=== PATIENT | female | born 1990 | race Caucasian/White ===

== ENCOUNTER 2017-03-24 20:55 | Inpatient (IN) | payer BC ==
[2017-03-24] MEDS ORDERED: LIDOCAINE HCL 50 ML VIAL ONE (21:36)
[2017-03-24] MEDS ORDERED: OXYTOCIN 10 UNITS/ML SYRG ONE (21:40)
[2017-03-24] MEDS ORDERED: OXYTOCIN 10 UNITS/ML SYRG IM ONE (21:54)
[2017-03-24] MEDS ORDERED: BENZOCAINE/MENTHOL 81 SPRAY CAN TP PRN (22:23)
[2017-03-24] MEDS ORDERED: GLYCERIN/WITCH HAZEL LEAF 40 APPL BOX TP PRN (22:23)
[2017-03-24] MEDS ORDERED: BISACODYL 10 MG SUPP.RECT RC PRN (22:23)
[2017-03-24] MEDS ORDERED: oxyCODONE HCL/ACETAMINOPHEN 1 TAB TABLET PO PRN (22:23)
[2017-03-24] MEDS ORDERED: IBUPROFEN 800 MG TABLET PO PRN (22:23)
[2017-03-24] MEDS ORDERED: SENNOSIDES 8.6 MG TABLET PO PRN (22:23)
[2017-03-24] MEDS ORDERED: HYDROCORTISONE 30 APPL TUBE TP PRN (22:23)
--- NOTE | 2017-03-24 22:27 | OR ---
Operative Report - Dictated Report Narrative: Spontaneous Vaginal Delivery Viable male with APGARS of 8 at 1 minute and at 5 minutes. He delivered at 2147. Presentation was ALDO. No nuchal cord was noted. The left anterior shoulder delivered with gentle downward traction followed by the posterior shoulder and the remainder of the baby. Maternal abdomens pontaneous cry wasn oted.The cord was clamped and cut after approximately 60 seconds. Weight: 3606 g Placenta was delivered spontaneously and intact. No lacerations were noted. Estimated blood loss: 100 ml Mother and baby tolerated delivery well. History for Definition: * The number of deliveries resulting in a live the patient experienced prior to current hospitalization * The previous delivery of live twins or any live multiple gestation is considered one live event. *If primagravida or nulliparous is documented select zero for the number of previous live births. Live Events: 1
[2017-03-25] MEDS: IBUPROFEN 800 MG TABLET PO PRN ×2 (05:28→13:21)
[2017-03-25] MEDS: DOCUSATE SODIUM 100 MG CAPSULE PO SCH ×2 (09:28→21:34)
[2017-03-25] MEDS: oxyCODONE HCL/ACETAMINOPHEN 1 TAB TABLET PO PRN ×3 (09:30→19:11)
--- NOTE | 2017-03-25 10:20 | PN ---
Progess Note - Interim Narrative: 03/25/17 10:19 progress note Subjective: The patient is doing well. She is ambulating, voiding, tolerating by mouth. She has minimal pain and moderate lochia. Objective: General: No acute distress Abdomen: Soft, nontender, fundus is firm just below the umbilicus Extremities: minimal edema, nontender to palpation Assessment and plan: day 1 Feeding: Breast Pain: Controlled with by mouth medication Routine care.
[2017-03-26] MEDS: oxyCODONE HCL/ACETAMINOPHEN 1 TAB TABLET PO PRN ×2 (03:42→13:07)
[2017-03-26 08:49] VITALS: BP 114/71
[2017-03-26] MEDS: DOCUSATE SODIUM 100 MG CAPSULE PO SCH (10:19)
--- NOTE | 2017-03-26 10:28 | PN ---
Progess Note - Interim Narrative: 03/26/17 10:27 progress note Subjective: The patient is doing well. She is ambulating, voiding, tolerating by mouth. She has minimal pain and moderate lochia. Objective: General: No acute distress Abdomen: Soft, nontender, fundus is firm just below the umbilicus Extremities: minimal edema, nontender to palpation Assessment and plan: day 2 Feeding: Breast Pain: Controlled with by mouth medication BC: Jim Routine care.
== END 2017-03-26 13:40 | disposition home or self-care (01) | DRG 775 ==
LOC: OBCLINIC 20:55 → OB 21:32
PROVIDERS: ADMIT Obstetrics & Gynecology Gynecologic Oncology; ATTEND Obstetrics & Gynecology Gynecologic Oncology
PROC: 10E0XZZ Delivery of Products of Conception, External Approach (ICD-10-PCS; principal; 2017-03-24)
PROC: 4A1HXCZ Monitoring of Products of Conception, Cardiac Rate, External Approach (ICD-10-PCS; 2017-03-24)
DX: O80 Encounter for full-term uncomplicated delivery (principal); Z3A.40 40 weeks gestation of pregnancy; Z37.0 Single live birth